=== PATIENT | male | born 1975 | race African-American/Black ===

== ENCOUNTER 2024-04-06 15:19 | Outpatient (CLI) | payer BC, SELFPAY ==
--- NOTE | ~2024-04-06 | XR_ITS ---
EXAMINATION: XR foot RT min 3V DATE: 04/06/2024 15:34 INDICATION: Pain at right first metatarsal. TECHNIQUE: 3 views of right foot were obtained. COMPARISON: None. FINDINGS: There is mild hallux valgus. No fracture. Joint spaces are normal. There is an enthesophyte at plantar aspect of calcaneal tuberosity. IMPRESSION: 1. Mild hallux valgus. Reviewed, dictated and finalized at location A. R OPERATOR HELPER IMPRESSION: 1. Mild hallux valgus.
--- OUTSIDE RECORDS SUMMARY | 2024-04-06 15:27 | XMS_ITS | Encounter Summary ---
Author Organization [facility] Address [address] [place] [address] Phone Care Team Providers Care Residential Property Tax Appraiser Name Role Phone Gerardo Erazo MD Primary Care Provider [phone] Reason for Visit * Reason Comments Medication Refill Encounter Details Date Type Department Care Team (Late st Contact Info) Description 05/29/2021 Refill [facility] [address]2 [place] [address] Gerardo Erazo MD [address] [address] Medication Refill Social History Tobacco Use Types Packs/Day Years Used Date Smoking Tobacco: Light Smoker Smokeless Tobacco: Never Alcohol Use Standard Drinks/Week Comments Yes 0 (1 standard drink = 0.6 oz pur e alcohol) occasionally PHQ-2 Answer Date Recorded Total Score - Questions 1-9 0 03/20 Sex and Gender Information Value Date Recorded Sex Assigned at Not on file Legal Sex Male 8:30 PM CDT Gender Identity Not on file Sexual Orientation Not on file documented as of this encounter Miscellaneous Notes * Telephone Encounter - Laura Chavez RN - 05/29/2021 8:34 AM CDT Medication failed the protocol, provider to review and approve the medication order if appropriate. Requested Prescriptions Pending Prescriptions Disp Refills amLODIPine (NORVASC) 10 MG Tablet [Pharmacy Med Name: AMLODIPINE BESYLATE 10MG TABLETS] 90 Tablet 0 Sig: Take 1 Tablet by mouth daily. Calcium-Channel Blockers Protocol Failed - 05/29/2021 5:12 AM Failed - BP on record in the past year Clinician-entered: BP Readings from Last 3 Encounters: 04/10/20 144/82 01/09/20 (!) 160/98 04/27/19 138/90 Patient-entered: No data recorded Failed - Visit with relevant provider in past 12 months or upcoming 90 days Recent Visits No visits were found meeting these conditions. Showing recent visits within past 365 days and meeting all other requirements Future Appointments No visits were found meeting these conditions. Showing future appointments within next 90 days and meeting all other requirements documented in this encounter Plan of Treatment Not on file documented as of this encounter Visit Diagnoses Not on filedocumented in this encounter Additional Health Concerns Assessment Noted Time PHQ-9 Depression Total Score: 0 04/10/19 21 1:52 PM BALLROOM DANCE INSTRUCTOR documented as of this encounter Care Teams Residential Property Tax Appraiser Relationship Specialty Start Date End Date Gerardo Erazo MD [address]2 [place] [address] PCP - General Family Medicine 01/09/20 documented as of this encounter
--- OUTSIDE RECORDS SUMMARY | 2024-04-06 15:27 | XMS_ITS | Encounter Summary ---
Author Organization [facility] Address [address] [place] [address] Phone Care Team Providers Care Integrated Circuit Layout Designer Name Role Phone Gerardo Erazo MD Primary Care Provider [phone] Reason for Visit * Reason Comments Medication Refill Encounter Details Date Type Department Care Team (Late st Contact Info) Description 06/13/2023 Refill [facility] [address]2 [place] [address] Emerson Starr, MERCHANDISE DELIVERER, PHYSICIAN OFFICE SPECIALIST #[address] [address] Medication Refill Social History Tobacco Use Types Packs/Day Years Used Date Smoking Tobacco: Light Smoker Smokeless Tobacco: Never Comments:Cigars Alcohol Use Standard Drinks/Week Comments Yes 0 (1 standard drink = 0.6 oz pur e alcohol) occasionally PHQ-2 Answer Date Recorded Total Score - Questions 1-9 0 03/20 Education Answer Date Recorded What is the highest level of school you have completed or the highest degree you have received? Associate degree: occupational, technical, or vocational program 10/10/2022 Sex and Gender Information Value Date Recorded Sex Assigned at Not on file Legal Sex Male 8:30 PM CDT Gender Identity Not on file Sexual Orientation Not on file documented as of this encounter Miscellaneous Notes * Telephone Encounter - Nimisha Hargrove RN - 06/15/2023 8:47 AM CDT Medication failed the protocol, provider to review and approve the medication order if appropriate. Requested Prescriptions Pending Prescriptions Disp Refills glimepiride (AMARYL) 1 MG Tablet [Pharmacy Med Name: GLIMEPIRIDE 1MG TABLETS] 90 Tablet 3 Sig: Take 1 Tablet by mouth daily after breakfast. Sulfonylureas Protocol Failed - 06/13/2023 6:49 AM Failed - HgA1C on record in past 6 months No results found for: HGBA1C Failed - GFR on record in past 6 months No results found for: GFRA Passed - Visit with relevant provider in past 6 months or upcoming 90 days Recent Visits Date Type Provider Dept 04/23/23 Telemedicine Gerardo Erazo MD [facility] Showing recent visits within past 182 days and meeting all other requirements Future Appointments Date Type Provider Dept 06/29/23 Appointment Gerardo Erazo MD [facility] Showing future appointments within next 90 days and meeting all other requirements documented in this encounter Plan of Treatment Not on file documented as of this encounter Visit Diagnoses Diagnosis Type 2 diabetes mellitus treated without insulin (HCC) documented in this encounter Additional Health Concerns Assessment Noted Time PHQ-9 Depression Total Score: 0 04/10/19 21 1:52 PM MORTGAGE ACCOUNTING CLERK documented as of this encounter Care Teams Integrated Circuit Layout Designer Relationship Specialty Start Date End Date Gerardo Erazo MD [address] [address] PCP - General Family Medicine 01/09/20 documented as of this encounter
--- OUTSIDE RECORDS SUMMARY | 2024-04-06 15:27 | XMS_ITS | Clinical Summary ---
Author Organization [facility] Address [address] [place] [address] Phone Care Team Providers Care Cardiovascular Lab Director Name Role Phone Gerardo Erazo MD Primary Care Provider [phone] Allergies No known active allergies Medications HYDROcodone-aceta minophen (NORCO) 10-325 MG TabletIndications :Closed nondisplaced fracture of fifth metatarsal bone of right foot with routine healing, subsequent encounter Take 1 Tablet by mouth every 6 hours as needed for Moderate or more severe pain. 20 Tablet 3 Active ketoconazole (NIZORAL) 2 % ShampooIndication s:Tinea versicolor Apply three times a week until clear. 120 mL 3 Active glimepiride (AMARYL) 1 MG TabletIndications :Type 2 diabetes mellitus treated without insulin (HCC) TAKE 1 TABLET BY MOUTH DAILY AFTER BREAKFAST 90 Tablet 3 4 Active metFORMIN (GLUCOPHAGE) 500 MG TabletIndications :Type 2 diabetes mellitus treated without insulin (HCC) TAKE 1 TABLET BY MOUTH TWICE DAILY WITH MEALS 180 Tablet 1 4 Active valsartan (DIOVAN) 160 MG TabletIndications :Primary hypertension Take 1 Tablet by mouth daily. 90 Tablet 3 4 Active amLODIPine (NORVASC) 10 MG Tablet Take 1 Tablet by mouth daily. 90 Tablet 4 Active Active Problems Problem Noted Date Diagnosed Date Right leg pain 04/23/2023 Vitamin D deficiency 04/10/2020 Acute back pain less than 4 weeks duration 04/10 Hematuria 02/11/2020 Noncompliance 01/09/2020 Type 2 diabetes mellitus treated without insulin 04/27/2019 Gastroesophageal reflux disease 04/27/2019 Obesity (BMI 30-39.9) 04/27/2019 Chronic back pain greater than 3 months duration 04/27/2019 Tobacco abuse 04/27/2019 Hyperlipidemia 04/27/2019 High blood pressure 04/27/2019 Encounters Date Type Department Care Team Description 02/16/2024 Refill [facility] [address] [place] [address] Gerardo Erazo MD Medication Refill from Last 3 Months Family History Medical History Relation Name Comments No Known Problems Brother No Known Problems Father Lupus Mother No Known Problems Sister Relation Name Status Comments Brother Alive Father Alive Mother Alive Sister Alive Social History Tobacco Use Types Packs/Day Years Used Date Smoking Tobacco: Light Smoker Smokeless Tobacco: Never Tobacco Cessation:Ready to Q uit: Not Asked; Counseling Given: Not Answered Comments:Cigars Alcohol Use Standard Drinks/Week Comments Yes [...] on file Sexual Orientation Not on file Last Filed Vital Signs Vital Sign Reading Time Taken Comments Blood Pressure 140/90 10/10/2022 10:02 AM CDT Pulse 89 10/10/2022 10:02 AM CDT Temperature 36.6 C (97.9 F) 10/10/2022 10:02 AM CDT Respiratory Rate 14 10/10/2022 10:0 2 AM CDT Oxygen Saturation 99% 10/10/2022 10: 02 AM CDT Inhaled Oxygen Concentration - - Weight 126.2 kg (278 lb 4.8 oz) 023 10:02 AM CDT Height 193 cm (6' 4 ) 10/10/2022 10:02 AM CDT Body Mass Index 33.88 10/10/2022 10:02 AM CDT Plan of Treatment Health Maintenance Due Date Last Done Comments Diabetes: Eye Exam 1977 Diabetes: Foot Exam 1977 TdaP Immunization 1977 Hepatitis B Immunization (1 of 3 - 19+ 3-dose series) 1996 Pneumococcal Immunization Combined (1 of 2 - PCV) 1996 Diabetes: Hemoglobin A1c 10/08/2020 021, 03/04/2019, 01/18/2019 Diabetes: Nephropathy Screening 04/10/2021 04/10/2020, 03/04/2019, 01/18/2019, Additional history exists Colonoscopy 2022 Colorectal Cancer Screening 2022 Influenza Immunization (#1) 2023 SARS-COV-2 Immunization ( season) 2023 06/14/2020, 05/18/2020 Respiratory Syncytial Virus (RSV) Immunization (Adult) (1 - 1-dose 75+ series) 2052 Hepatitis C Virus (HCV) Screening Discontinued Meningococcal Immunization (ACWY) Aged Out No longer eligible based on patient's age to complete this topic Rotavirus Immunization Aged Out No lo nger eligible based on patient's age to complete this topic Procedures Procedure Name Priority Date/Time Associated Diagnosis Comments UR MICROALBUMIN/CREATIN INE RATIO RANDOM Routine 04/10/2020 9:02 AM RADIOLOGIST PHYSICIAN Type 2 diabetes mellitus treated without insulin (HCC) HEMOGLOBIN A1C W/ ESTIMATED GLUCOSE Routine 04/10/2020 9:01 AM RADIOLOGIST PHYSICIAN Type 2 diabetes mellitus treated without insulin (HCC) from Last 3 Months or Most Recently Relevant to Health Maintenance Results * (ABNORMAL) UR MICROALBUMIN/CREATININE RATIO RANDOM (04/10/2020 9:02 AM RADIOLOGIST PHYSICIAN) RAN UR MICROALBUMIN 10.52(H) <=2.00 mg/dL 04/10/2020 10:19 AM RADIOLOGIST PHYSICIAN [facility] CREATININE URINE 174.1 39.0 - 259.0 mg/dL 04/10/2020 10:19 AM RADIOLOGIST PHYSICIAN [facility] ALB/CREAT RATIO 60(H) 1 - 30 mg/g CRE 04/10/2020 10:19 AM RADIOLOGIST PHYSICIAN [facility] Urine Non-Phlebotomy Collection / Unknown 04/10/2020 9:02 AM RADIOLOGIST PHYSICIAN 04/10/2020 9:58 AM RADIOLOGIST PHYSICIAN Gerardo Erazo MD URINE ORDERABLES Final Resu lt [facility] [address] [place] [address] * (ABNORMAL) HEMOGLOBIN A1C W/ ESTIMATED GLUCOSE (04/10/2020 9:01 AM RADIOLOGIST PHYSICIAN) HGB-A1C 10.8(H) 4.0 - 6.0 % 04/10/2020 10:30 AM RADIOLOGIST PHYSICIAN [facility] Est Average Glucose 263.3 mg/dL 04/10/2020 10:30 AM RADIOLOGIST PHYSICIAN [facility] Blood Venipuncture / Unknown 04/10/2020 9:01 AM RADIOLOGIST PHYSICIAN 04/10/2020 10:00 AM RADIOLOGIST PHYSICIAN Narrative [facility] - 04/10/2020 10:30 AM RADIOLOGIST PHYSICIAN HEMOGLOBIN A1C: DIABETIC PATIENTS: WELL-CONTROLLED: 6.2 - 7.0 INTERMEDIATE WELL-CONTROLLED: 7.0 - 9.0 POORLY-CONTROLLED: >9.0 Gerardo Erazo MD CHEMISTRY ORDERABLES Final Result Performing Organization Address City/[facility] Co de Phone Number [facility] [address] [place] [address] from Last 3 Months or Most Recently Relevant to Health Maintenance Insurance [facility] Care Teams Cardiovascular Lab Director Relationship Specialty Start Date End Date Gerardo Erazo MD [address] [place] [id number] PCP - General Family Medicine 01/09/20
--- OUTSIDE RECORDS SUMMARY | 2024-04-06 15:27 | XMS_ITS | Encounter Summary ---
Author Organization [facility] Address [address] [place] [address] Phone Care Team Providers Care Chemical Worker Name Role Phone Gerardo Erazo MD Primary Care Provider [phone] Reason for Visit * Reason Comments Medication Refill Encounter Details Date Type Department Care Team (Late st Contact Info) Description 10/04/2021 Refill [facility] [address]2 [place] [address] Gerardo Erazo MD [address] [address] Medication Refill Social History Tobacco Use Types [...] encounter Miscellaneous Notes * Telephone Encounter - Nasra Wolff RN - 10/07/2021 7:55 AM CDT Medication failed the protocol, provider to review and approve the medication order if appropriate. Requested Prescriptions Pending Prescriptions Disp Refills amLODIPine (NORVASC) 10 MG Tablet [Pharmacy Med Name: AMLODIPINE BESYLATE 10MG TABLETS] 30 Tablet 0 Sig: TAKE 1 TABLET BY MOUTH EVERY DAY Calcium-Channel Blockers Protocol Failed - 10/04/2021 4:50 PM Failed - BP on record in the [...] Total Score: 0 04/10/19 21 1:52 PM INSOLE AND OUTSOLE SPLITTER documented as of this encounter Care Teams Chemical Worker Relationship Specialty Start Date End Date Gerardo Erazo MD [address] [place] [address] PCP - General Family Medicine 01/09/20 documented as of this encounter
--- OUTSIDE RECORDS SUMMARY | 2024-04-06 15:27 | XMS_ITS | Encounter Summary ---
Author Organization [facility] Address [address] [place] [address] Phone Care Team Providers Care Candy Counter Clerk Name Role Phone Gerardo Erazo MD Primary Care Provider [phone] Reason for Visit * Reason Comments Medication Refill Encounter Details Date Type Department Care Team (Late st Contact Info) Description 08/31/2021 Refill [facility] - Family Medicine [facility] #2 [place] [address] Gerardo Erazo MD [address] [address] Medication Refill Social History Tobacco Use Types [...] encounter Miscellaneous Notes * Telephone Encounter - Christian Gunderson RMA - 09/06/2021 2:13 PM CDT Left message for patient to call back. * Telephone Encounter - Va Zavala RMA - 09/02/2021 10:10 AM CDT No answer, or voicemail * Telephone Encounter - Nimisha Hargrove RN - 09/02/2021 9:17 AM CDT Patient needs an appointment with PCP/WOOD MODEL MAKER * Telephone Encounter - Nimisha Hargrove RN - 09/02/2021 9:17 AM CDT Medication failed the protocol, provider to review and approve the medication order if appropriate. Requested Prescriptions Pending Prescriptions Disp Refills amLODIPine (NORVASC) 10 MG Tablet [Pharmacy Med Name: AMLODIPINE BESYLATE 10MG TABLETS] 30 Tablet 0 Sig: TAKE 1 TABLET BY MOUTH EVERY DAY Calcium-Channel Blockers Protocol Failed - 08/31/2021 3:31 AM Failed - BP on record in [...] Total Score: 0 04/10/19 21 1:52 PM ROOFER GYPSUM documented as of this encounter Care Teams Candy Counter Clerk Relationship Specialty Start Date End Date Gerardo Erazo MD [address] [place] [id number] PCP - General Family Medicine 01/09/20 documented as of this encounter
--- OUTSIDE RECORDS SUMMARY | 2024-04-06 15:27 | XMS_ITS | Continuity of Care Document ---
Author Organization [facility] Address [address] [place] [address] [address] [place] [address] Phone Care Team Providers Care Electrical Engineering Technologist Name Role Phone Gonzalez OD, Max Unavailable Unavailable Procedures Procedure Date Office/outpatient Visit, Est Remove Foreign Body From Eye Advance Directives Directive Yes / No Effective Date File Name No Information Encounters Encounter Description Practice Location Reason(s) For Visit Diagnoses Date Provider Providers Copied on Encounter Office/outpat ient Visit, Est [facility], [address] [place] [address] [address], [place], [place], [id number], tel:[phone] [facility] [place] No Information 9-201 0 Gonzalez OD Max. [address] [facility] , [address], [place], [address], [place]. tel:[phone] [facility], [address] [place] [address] [address], [place], [place], [id number], tel:[phone] [facility] [place] No Information 2-201 0 Gonzalez OD Max. [address] [facility] [place] , [address], [place], [address], [place]. tel:[phone] Family History Family Member Type Diagnosis Age At Onset No Information Payers Payer name Insurance type Covered democrat ID Authoriza tialma(s) [place] [id number] Social History Type Description Quantity Date Captured Comments Sex Male Smoking Status No Information Chief Complaint And Reason For Visit No Information Reason For Referral Reason For Referral No Information History Of Present Illness Encounter Date Complaint History Of Prese nt Illness No Information Functional Status Date Functional Assessmen t No Information Instructions Date Instruction Additional Infor mation No Information Assessments Type Assessment Date No Information Patient Care Teams Name Effective Dates (start - stop) Status Members No Information
--- OUTSIDE RECORDS SUMMARY | 2024-04-06 15:27 | XMS_ITS | Encounter Summary ---
Author Organization [facility] Address [address] [place] [address] Phone Care Team Providers Care Hand Almond Blancher Name Role Phone Gerardo Erazo MD Primary Care Provider [phone] Reason for Visit * Reason Comments Medication Refill Encounter Details Date Type Department Care Team (Late st Contact Info) Description 04/23/2021 Refill [facility] - Family Medicine [facility] [address]2 [place] [address] Gerardo Erazo MD [address] [address] Medication Refill Social History Tobacco Use Types [...] encounter Miscellaneous Notes * Telephone Encounter - Cristina Hutchins RN - 04/23/2021 2:33 PM CST Medication failed the protocol, provider to review and approve the medication order if appropriate. Requested Prescriptions Pending Prescriptions Disp Refills metFORMIN (GLUCOPHAGE) 500 MG Tablet [Pharmacy Med Name: METFORMIN 500MG TABLETS] 180 Tablet 3 Sig: TAKE 1 TABLET BY MOUTH TWICE DAILY WITH MEALS Biguanides Protocol Failed - 04/23/2021 5:03 AM Failed - Visit with relevant provider in past 6 months or upcoming 90 days Recent Visits No visits were found meeting these conditions. Showing recent visits within past 182 days and meeting all other requirements Future Appointments No visits were found meeting these conditions. Showing future appointments within next 90 days and meeting all other requirements Failed - HgA1C on record in past 6 months HGB-A1C Date Value Ref Range Status 04/10/2020 10.8 (H) 4.0 - 6.0 % Final Failed - GFR on record in past 6 months No results found for: GFRA URCES REPRESENTATIVE documented in this encounter Plan of Treatment Not on file documented as of this encounter Visit Diagnoses Not on filedocumented in this encounter Additional Health Concerns Assessment Noted Time PHQ-9 Depression Total Score: 0 04/10/19 21 1:52 PM RESOURCES REPRESENTATIVE documented as of this encounter Care Teams Hand Almond Blancher Relationship Specialty Start Date End Date Gerardo Erazo MD [address] [address] PCP - General Family Medicine 01/09/20 documented as of this encounter
== END 2024-04-06 15:20 | disposition home or self-care (01) ==
LOC: ANHIMG 15:25
PROVIDERS: PCP Family Medicine; Visit Provider Family Medicine
DX: M20.11 Hallux valgus (acquired), right foot (principal)
CPT/HCPCS: 73630

== ENCOUNTER 2024-08-18 13:06 | Outpatient (CLI) | payer BC, SELFPAY ==
--- NOTE | ~2024-08-18 | XR_ITS ---
EXAM: XR elbow RT 2V DATE: 08/18/2024 13:28 HISTORY: M25.529 - Pain in unspecified elbow RADIATES DOWN FOREARM . COMPARISON: None available. FINDINGS: Normal mineralization. No fracture or dislocation. No lytic or blastic lesion. Joint space s are maintained. Mild medial epicondylar and olecranon enthesopathy. No erosion or periosteal change . Focal soft tissue swelling over the olecranon. IMPRESSION: Mild medial epicondylar and olecranon enthesopathy. Possible mild olecranon bursitis. Reviewed, dictated and finalized at location K. IMPRESSION: Mild medial epicondylar and olecranon enthesopathy. Possible mild o lecranon bursitis.
--- NOTE | ~2024-08-18 | XR_ITS ---
EXAM: XR elbow LT 2V DATE: 08/18/2024 13:28 HISTORY: M25.529 - Pain in unspecified elbow RADIATES DOWN FOREARM . COMPARISON: None available. FINDINGS: Normal mineralization. No fracture or dislocation. No lytic or blastic lesion. Joint space s are maintained. Mild medial and lateral epicondylar enthesopathy No erosion or periosteal change. S oft tissue swelling over the olecranon. IMPRESSION: Mild medial and lateral epicondylar enthesopathy. Possible mild olecranon bursitis. Reviewed, dictated and finalized at location K. IMPRESSION: Mild medial and lateral epicondylar enthesopathy. Possible mild ole cranon bursitis.
--- OUTSIDE RECORDS SUMMARY | 2024-08-18 13:10 | XMS_ITS | Encounter Summary ---
Author Organization [facility] Address [address] [place] [address] Phone Care Team Providers Care Medical I D Sales Name Role Phone Gerardo Erazo MD Primary Care Provider [phone] Jose Randall MD Primary Care Provider [phone] Reason for Visit * Reason Comments Medication Refill Encounter Details Date Type Department Care Team (Late st Contact Info) Description 08/31/2021 Refill [facility] [address] [place] [address] Gerardo Erazo MD #[address] [address] Medication Refill Social History Tobacco Use Types [...] AM CDT Patient needs an appointment with PCP/COPPING MACHINE OPERATOR * Telephone Encounter - Nimisha Hargrove RN [...] Total Score: 0 04/10/19 21 1:52 PM FLASK CLEANER documented as of this encounter Care Teams Medical I D Sales Relationship Specialty Start Date End Date Gerardo Erazo MD #[address] [address] PCP - General Family Medicine 01/09/20 06/15/24 Jose Randall MD [address] [place] [address] PCP - General Family Medicine 06/16/24 documented as of this encounter
--- OUTSIDE RECORDS SUMMARY | 2024-08-18 13:10 | XMS_ITS | Clinical Summary ---
Author Organization [facility] Address [address] [place] [address] Phone Care Team Providers Care Assemblyman Or Woman Name Role Phone Jose Randall MD Primary Care Provider [phone] Allergies No known active allergies Medications HYDROcodone-aceta [...] 4 Active amLODIPine (NORVASC) 10 MG Tablet TAKE 1 TABLET BY MOUTH DAILY 30 Tablet 5 Active Active Problems Problem Noted Date Diagnosed [...] Encounters Date Type Department Care Team Description 06/15/2024 Refill [facility] [address] [place] [address] Gerardo Erazo MD Medication Refill from Last [...] 10:02 AM CDT Height 193 cm (6' 4) 10/10/2022 10:02 AM CDT Body Mass Index [...] 04/10/2021 04/10/2020, 03/04/2019, 01/18/2019, Additional history exists Cologuard 2022 Colonoscopy 2022 Colorectal Cancer Screening 2022 Immunochemical Fecal Occult Blood 2022 SARS-COV-2 Immunization ( season) 2023 06/14/2020, 05/18/2020 Influenza Immunization (Season Ended) 2024 Respiratory Syncytial Virus (RSV) Immunization (Adult) (1 - 1-dose 75+ series) 2052 Hepatitis C Virus (HCV) Screening Discontinued Human Papillomavirus (HPV) Immunization Aged Out No longer eligible based on patient's age to complete this topic Meningococcal Immunization (ACWY) Aged Out No longer eligible based on patient's age to complete this topic Rotavirus Immunization Aged Out No lo nger eligible based on patient's age to complete this topic Procedures Procedure Name Priority Date/Time Associated Diagnosis Comments UR MICROALBUMIN/CREATIN INE RATIO RANDOM Routine 04/10/2020 9:02 AM FONDANT MACHINE OPERATOR Type 2 diabetes mellitus treated without insulin (HCC) HEMOGLOBIN A1C W/ ESTIMATED GLUCOSE Routine 04/10/2020 9:01 AM FONDANT MACHINE OPERATOR Type 2 diabetes mellitus treated without insulin (HCC) from Last 3 Months or Most Recently Relevant to Health Maintenance Results * (ABNORMAL) UR MICROALBUMIN/CREATININE RATIO RANDOM (04/10/2020 9:02 AM FONDANT MACHINE OPERATOR) RAN UR MICROALBUMIN 10.52(H) <=2.00 mg/dL 04/10/2020 10:19 AM FONDANT MACHINE OPERATOR [facility] CREATININE URINE 174.1 39.0 - 259.0 mg/dL 04/10/2020 10:19 AM FONDANT MACHINE OPERATOR [facility] ALB/CREAT RATIO 60(H) 1 - 30 mg/g CRE 04/10/2020 10:19 AM FONDANT MACHINE OPERATOR [facility] Urine Non-Phlebotomy Collection / Unknown 04/10/2020 9:02 AM FONDANT MACHINE OPERATOR 04/10/2020 9:58 AM FONDANT MACHINE OPERATOR Gerardo Erazo MD URINE ORDERABLES Final Re sult [facility] [address] [place] [address] * (ABNORMAL) HEMOGLOBIN A1C W/ ESTIMATED GLUCOSE (04/10/2020 9:01 AM FONDANT MACHINE OPERATOR) HGB-A1C 10.8(H) 4.0 - 6.0 % 04/10/2020 10:30 AM FONDANT MACHINE OPERATOR [facility] Est Average Glucose 263.3 mg/dL 04/10/2020 10:30 AM FONDANT MACHINE OPERATOR [facility] Blood Venipuncture / Unknown 04/10/2020 9:01 AM FONDANT MACHINE OPERATOR 04/10/2020 10:00 AM FONDANT MACHINE OPERATOR Narrative [facility] - 04/10/2020 10:30 AM FONDANT MACHINE OPERATOR HEMOGLOBIN A1C: DIABETIC PATIENTS: WELL-CONTROLLED: 6.2 - 7.0 INTERMEDIATE WELL-CONTROLLED: 7.0 - 9.0 POORLY-CONTROLLED: >9.0 Gerardo Erazo MD CHEMISTRY ORDERABLES Shalonda l Result [facility] [address] [place] [address] from Last 3 Months or Most Recently Relevant to Health Maintenance Insurance [facility] Care Teams Assemblyman Or Woman Relationship Specialty Start Date End Date Jose Randall MD [address] [place] [address] PCP - General Family Medicine 06/16/24
--- OUTSIDE RECORDS SUMMARY | 2024-08-18 13:10 | XMS_ITS | Encounter Summary ---
Author Organization [facility] Address [address] [place] [address] Phone Care Team Providers Care Control Technician Name Role Phone Gerardo Erazo MD Primary Care Provider [phone] Jose Randall MD Primary Care Provider [phone] Reason for Visit * Reason Comments Medication Refill Encounter Details Date Type Department Care Team (Late st Contact Info) Description 06/13/2023 Refill [facility] [address] [place] [address] Emerson Starr APRN, HUMAN RESOURCES OFFICER [address] [address] Medication Refill Social History Tobacco Use Types [...] Total Score: 0 04/10/19 21 1:52 PM 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
--- OUTSIDE RECORDS SUMMARY | 2024-08-18 13:10 | XMS_ITS | Encounter Summary ---
Author Organization [facility] Address [address] 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
--- OUTSIDE RECORDS SUMMARY | 2024-08-18 13:10 | XMS_ITS | Encounter Summary ---
Author Organization [facility] Address [address] [place] [address] Phone Care Team Providers Care Ux Researcher Name Role Phone Gerardo Erazo MD Primary Care Provider [phone] Jose Randall MD Primary Care Provider [phone] Reason for Visit * Reason Comments Medication Refill Encounter Details Date Type Department Care Team (Late st Contact Info) Description 10/04/2021 Refill [facility] [address] [place] [address] Gerardo Erazo MD [address] [address] Medication Refill Social History Tobacco Use Types [...] Total Score: 0 04/10/19 21 1:52 PM QUALITY ASSURANCE INSPECTOR documented as of this encounter Care Teams Ux Researcher Relationship Specialty Start Date End Date Gearrdo Erazo MD [address] [address] PCP - General Family Medicine 01/09/20 06/15/24 Jose Randall MD [address] [place] [address] PCP - General Family Medicine 06/16/24 documented as of this encounter
--- OUTSIDE RECORDS SUMMARY | 2024-08-18 13:10 | XMS_ITS | Encounter Summary ---
Author Organization [facility] Address [address] [place] [address] Phone Care Team Providers Care Sports Broadcasting Internship Name Role Phone Gerardo Erazo MD Primary Care Provider [phone] Jose Randall MD Primary Care Provider [phone] Reason for Visit * Reason Comments Medication Refill Encounter Details Date Type Department Care Team (Late st Contact Info) Description 06/15/2024 Refill [facility] [address] [place] [address] Gerardo Erazo MD [address] [address] Medication Refill Social History Tobacco Use Types [...] Telephone Encounter - Nimisha Hargrove RN - 06/16/2024 8:26 AM CDT Disregard - from chart - pt is now seeing Jose Randall MD This provider has been filling his medications * Telephone Encounter - Nimisha Hargrove RN - 06/16/2024 8:25 AM CDT Needs OV - last appt 05/13/23 was a telephone visit * Telephone Encounter - Nimisha Hargrove RN - 06/16/2024 8:25 AM CDT Medication failed the protocol, provider to review and approve the medication order if appropriate. Requested Prescriptions Pending Prescriptions Disp Refills amLODIPine (NORVASC) 10 MG Tablet [Pharmacy Med Name: AMLODIPINE BESYLATE 10MG TABLETS] 30 Tablet 0 Sig: TAKE 1 TABLET BY MOUTH DAILY Calcium-Channel Blockers Protocol Failed - 06/16/2024 8:25 AM Failed - BP on record in the past year Clinician-entered: BP Readings from Last 3 Encounters: 10/10/22 140/90 06/23/22 148/80 06/22/22 148/90 Patient-entered: No data recorded Failed - Visit [...] Total Score: 0 04/10/19 21 1:52 PM MED SPEC documented as of this encounter Care Teams Sports Broadcasting Internship Relationship Specialty Start Date End Date Gerardo Erazo MD #[address] [address] PCP - General Family Medicine 01/09/20 06/15/24 Jose Randall MD [address] [place] [address] PCP - General Family Medicine 06/16/24 documented as of this encounter
--- OUTSIDE RECORDS SUMMARY | 2024-08-18 13:10 | XMS_ITS | Continuity of Care Document ---
Author Organization [facility] Address [address] [place] [address] [address] [place] [address] Phone Care Team Providers Care Records Specialist Name Role Phone Gonzalez OD, Max Unavailable Unavailable Procedures Procedure Date Office/outpatient Visit, Est Remove Foreign Body From Eye Advance Directives Directive Yes / No Effective Date File Name No Information Encounters Encounter Description Practice Location Reason(s) For Visit Diagnoses Date Provider Providers Copied on Encounter Office/outpat ient Visit, Est [facility], [address] [place] [address] [address], [place], [place], [id number], tel:[phone] [facility] [place] No Information 9-201 0 Gonzalez OD Max. [address] [facility] , [address], [place], [address], [place]. tel:[phone] [facility], [address] [place] [address] [address], [place], [place], [id number], tel:[phone] [facility] [place] No Information 2-201 0 Gonzalez OD Max. [address] [facility] [address] [facility] [place] , [address], [place], [address], [place]. tel:[phone] Family History Family Member Type Diagnosis Age At Onset No Information Payers Payer name Insurance type Covered green party ID Authoriza tialma(s) [employer] [id number] Social History Type Description Quantity Date Captured [...]
--- OUTSIDE RECORDS SUMMARY | 2024-08-18 13:10 | XMS_ITS | Encounter Summary ---
Author Organization [facility] Address [address] [place] [address] Phone Care Team Providers Care Project Crew Worker Name Role Phone Gerardo Erazo MD Primary Care Provider [phone] Jose Randall MD Primary Care Provider Reason for Visit * Reason Comments Medication Refill Encounter Details Date Type Department Care Team (Late st Contact Info) Description 04/23/2021 Refill [facility] [address] [place] [address] Gerardo Erazo MD #[address] [address] Medication Refill Social History Tobacco Use Types [...] 6 months No results found for: GFRA S UNLOADING EQUIPMENT TENDER documented in this encounter Plan of Treatment Not on file documented as of this encounter Visit Diagnoses Not on filedocumented in this encounter Additional Health Concerns Assessment Noted Time PHQ-9 Depression Total Score: 0 04/10/19 21 1:52 PM GLASS UNLOADING EQUIPMENT TENDER documented as of this encounter Care Teams Project Crew Worker Relationship Specialty Start Date End Date Gerardo Erazo MD #[address] [address] PCP - General Family Medicine 01/09/20 06/15/24 Jose Randall MD [address] [place] [address] PCP - General Family Medicine 06/16/24 documented as of this encounter
== END 2024-08-18 13:07 | disposition home or self-care (01) ==
PROVIDERS: PCP Family Medicine; Visit Provider Family Medicine
DX: M77.12 Lateral epicondylitis, left elbow (principal); M77.02 Medial epicondylitis, left elbow; M77.11 Lateral epicondylitis, right elbow; M77.01 Medial epicondylitis, right elbow
CPT/HCPCS: 73070